=== PATIENT | female | born 1955 | race Caucasian/White ===

== ENCOUNTER 2017-04-14 09:13 | Inpatient (IN) | payer MEDICAID ==
[~2017-04-14] VITALS: Ht 157.5 cm; Wt 89.6 kg
--- NOTE | 2017-04-14 09:24 | NUR ---
PT BIB [facility] FOR C/O HEADACHE AND HTN. PER REPORT PT WOKE UP WITH A HEADACHE AND A FEELING OF GENERAL WEAKNESS. PT HAS A HX OF HTN AND STS SHE HAS BEEN TAKING HER MEDICATION LIKE NORMAL. PT UPON ARRIVAL TO ED WITH A&O X4 SPEAKING IN CLEAR COMPLETE SENTENCES. PT REPORTS HER HEADACHE IS GONE AT THIS TIME. PT STS WHEN SHE WOKE UP SHE HAD SOME ANXIETY AND WAS NOT FEELING NORMAL. PTS BREATHING IS EVEN AND UNLABORED. PT REPORTS NO RECENT N/V/D/C. PTS SKIN IS WARM AND DRY TO TOUCH. PT HAS 18 GAUGE IV IN HER RAC FLUSHED WITH 10ML NO REDNESS OR SWELLING NOTED. PTS BLOOD GLUCOSE SWIMMING POOL CLEANER WAS 320. PT IS PLACED IN GOWN ON QUILL SKINNER WITH CALL LIGHT IN REACH. PT AWAITING MSE
--- NOTE | 2017-04-14 10:29 | NUR ---
DR JEAN BAPTISTE AT BEDSIDE
--- NOTE | 2017-04-14 10:42 | NUR ---
MSE COMPLETED BY DR JEAN BAPTISTE
--- NOTE | 2017-04-14 10:50 | NUR ---
ANDRES AT BEDSIDE FOR BLOOD DRAW
--- NOTE | 2017-04-14 10:53 | NUR ---
PT TO CT VIA JOSE GUADALU[facility]
[2017-04-14 11:03] LABS: BASOPHIL % 0.6 % (0-2); PLATELET COUNT 213 x10^3mcL (130-400); RED CELL DISTRIBUTION WIDTH 13.1 % (11.5-14.5)
--- NOTE | 2017-04-14 11:06 | NUR ---
PT RETURNED FROM CT, PT AMBULATED TO RESTROOM TO PROVIDE URINE SAMPLE.
[2017-04-14 11:24] LABS: CALCIUM 8.6 mg/dL (8.5-10.1); CARBON DIOXIDE 29.1 mmol/L (21-32); CHLORIDE SERUM 103 mmol/L (98-107); CREATININE SERUM 0.8 mg/dL (0.6-1.0); GFR1 > 60 mL/min; GLUCOSE SERUM 239 mg/dL (74-106); POTASSIUM SERUM 3.8 mmol/L (3.5-5.1); SODIUM SERUM 139 mmol/L (136-145)
[2017-04-14 11:29] LABS: ALKALINE PHOSPHATASE 136 U/L (46-116); ALT/SGPT 22 U/L (14-59); AST/SGOT 16 U/L (15-37); BILIRUBIN TOTAL 0.52 mg/dL (0.20-1.00); CHOLESTEROL 215 mg/dL (<200); TOTAL PROTEIN, SERUM 7.2 g/dL (6.4-8.2)
[2017-04-14] MEDS ORDERED: METFORMIN HCL500 MG PO (11:32)
[2017-04-14] MEDS ORDERED: LOTENSIN40 MG PO (11:32)
[2017-04-14] MEDS ORDERED: LANTUS SOLOS100 U/M1 SC (11:32)
--- NOTE | 2017-04-14 11:40 | NUR ---
RECEIVED REPORT FROM ED, WILL AWAIT PT'S ARRIVAL.
[2017-04-14 11:52] LABS: AMPHETAMINE QUAL UR NONE DETECTED (NEG <=1000)
--- NOTE | 2017-04-14 11:55 | NUR ---
REPORT GIVEN TO MARCO BABCOCK TO ASSUME CARE OF PT PTS PRIMARY NURSE
[2017-04-14 12:13] LABS: microscopic required? YES; urine erythrocyte 1+ (NEGATIVE)
--- NOTE | 2017-04-14 12:18 | NUR ---
DR JEAN BAPTISTE AT BEDSIDE TO DISCUSS PLAN OF CARE WITH PT.
[2017-04-14 12:45] LABS: CHOLESTEROL/HDL RATIO 4.1
[2017-04-14 12:52] LABS: T3 TOTAL 1.3 ng/mL
[2017-04-14 12:58] LABS: FREE T4 1.09 ng/dL (0.76-1.46); FREE THYROXINE INDEX 2.6 ug/dL (1.4-4.5); T4(THYROXINE) 8.2 ug/dL (4.7-13.3)
--- NOTE | 2017-04-14 13:32 | NUR ---
OK TO BE TRANSPORTED TO [facility]
[2017-04-14 14:03] VITALS: BP 140/86
--- NOTE | 2017-04-14 14:07 | NUR ---
RECEIVED PT FROM ED VIA [email or web address]. ORIENTED PT TO ROOM AND SURROUNDINGS. IV NOTED TO RFA PATENT AND INTACT. TELE 33 PLACED ON PT READING NSR. INSTRUCTED PT ON THE USE OF CALL LIGHT FOR ASSISTANCE. ENDORSED PT TO PRIMARY NURSE MARCO
--- NOTE | 2017-04-14 14:12 | NUR ---
PT BEING ASSESSED BY MEDICAL STUDENT, RECEIVED MEDICATION, IV FLUID STARTED, DENIES PAIN, DENIES N/V/D, CALL LIGHT WITHIN REACH, VISITORS AT BEDSIDE.
--- NOTE | 2017-04-14 15:04 | NUR ---
PT DENIES SOB, DENIES PAIN, FAMILY AT BEDSIDE, PT TAUGHT TO USE CALL LIGHT, CALL LIGHT WITHIN REACH, WILL CONTINUE TO MONITOR.
--- NOTE | 2017-04-14 16:42 | NUR ---
US CAROTID IN PROGRESS, US LEGS TO FOLLOW.
[2017-04-14 17:30] VITALS: BP 157/75
--- NOTE | 2017-04-14 17:33 | NUR ---
PT DENIES SOB, DENIES PAIN, VISITORS AT BEDSIDE, BS 155, WILL MEDICATE PER EMAR, CALL LIGHT WITHIN REACH, WILL CONTINUE TO MONITOR.
--- NOTE | 2017-04-14 18:03 | NUR ---
PT DENIES SOB, DENIES PAIN, WATCHING TV, CALL LIGHT WITHIN REACH, WILL ENDORSE PT TO NEXT SHIFT.
--- NOTE | 2017-04-14 19:00 | NUR ---
RECEIVED PATIENT RESTING IN BED. PATIENT IS AAOX4. TELE #33 SR WITH OCC. PVCS. DENIES CHEST PAIN. LUNG SOUNDS CLEAR. NO SOB NOTED. IV FLUID INFUSING TO RFA PER DOCTOR'S ORDER. INTACT AND PATENT. SAFETY AND COMFORT MEASURES IN PLACE. BED IN LOWEST POSITION. CALL LIGHT WITHIN REACH. WILL CONTINUE TO MONITOR.
[2017-04-14 21:27] VITALS: BP 139/67
[2017-04-15 04:50] LABS: BASOPHIL % 0.2 % (0-2); PLATELET COUNT 209 x10^3mcL (130-400); RED CELL DISTRIBUTION WIDTH 13.5 % (11.5-14.5)
[2017-04-15 05:00] LABS: CALCIUM 8.5 mg/dL (8.5-10.1); CARBON DIOXIDE 26.8 mmol/L (21-32); MAGNESIUM 1.6 mg/dL (1.8-2.4); PHOSPHOROUS 4.2 mg/dL (2.5-4.9); POTASSIUM SERUM 3.8 mmol/L (3.5-5.1)
--- NOTE | 2017-04-15 05:05 | NUR ---
PATIENT SLEPT WELL. NO SIGNIFICANT CHANGES. IV FLUID INFUSING WELL. CALL LIGHT WITHIN REACH. WILL CONTINUE TO MONITOR.
[2017-04-15 06:29] VITALS: BP 159/78
--- NOTE | 2017-04-15 08:00 | NUR ---
RECIEVED PATIENT ALERT AND ORIENTED TIMES FOUR. PATIENT WAS SLEEPING ON INITIAL ASSESSMENT AND ROUNDS WITH NURSING AND NOW AWAKE WITH TRAY AT BEDSIDE. PATIENT HAS HAD AN ULTRASOUND AND IS OK TO EAT AT THIS TIME. SOME PALESTINIAN BREAD AT BEDSIDE AND ENCOURAGED FAMILY NOT TO BRING IN FOOD FROM HOME SHE IS DIABETIC. PATIENT HAS CLEAR BUT DIMINISHED BREATH SOUNDS. DANIEL SOUNDS ACTIVE AND SKIN IS WARM AND DRY. VITALS AT THIS TIME AT 98.0, 65, 18, 159/78, 98%. NOTED LABS ARE MAGNESIUM AT 1.6, AND URINE WITH BLOOD PLUS ONE, BACTERIA FEW AND WBCS AT 6-10. PULSES PALPABLE AND NO EDEMA NOTED. LABS NOTED ARE TRIGYCERIDE AT 293, PTT 21.7, CHOLESTEROL AT 215. NO COMPLAINTS OF DIZZINESS, NAUSEA, HEADACHE, OR PAIN NOTED. PATIENT GIVEN HER MEDICAIONS ORDERED WILL MONITOR FOR EFFECTIVENESS. CHEST XRAY NEGATIVE. PATIENT WITH QUESTIONABLE STENOSIS WITH NOTED CALCIFIED VESSELS.
[2017-04-15 09:41] VITALS: BP 173/86
--- NOTE | 2017-04-15 11:30 | NUR ---
BLODD SUGAR AT THIS TIME AT 249 AND GAVE INSULIN ORDERED. PATIENT TOLERATE DIET AND DENIES ANY PAIN OR DIZZINESS. FAMILY ABEDSIEE AND SUPPORTIVE WITH CARE.
--- NOTE | 2017-04-15 13:52 | NUR ---
FAMIULY STILL AT BEDSIDE AND PATIENT DENIES ANY ACUTE DISTRESS.
[2017-04-15 14:01] VITALS: BP 156/73
--- NOTE | 2017-04-15 17:27 | NUR ---
BLOOD SUGAR AT THIS TIME AT 159 AND GAVE 3 UNITS OF REGULAR ORDERED.
[2017-04-15 18:18] VITALS: BP 152/83
--- NOTE | 2017-04-15 19:00 | NUR ---
REC'D PT RESTING IN BED WITH VISITOR AT BEDSIDE. PT IS AAOX4. DENIES CHEST PAIN. LUNG SOUNDS CLEAR. NO SOB NOTED. BS ACTIVE X4. SKIN INTACT. IV FLUID INFUSING TO RFA PER DOCTOR'S ORDER. INTACT AND PATENT. SAFETY AND COMFORT MEASURES IN PLACE. BED IN LOWEST POSITION. CALL LIGHT WITHIN REACH. WILL CONTINUE TO MONITOR.
[2017-04-15 21:11] VITALS: BP 137/62
--- NOTE | 2017-04-15 23:52 | NUR ---
PT'S IV ON RFA INFILTRATED. NEW IV 22G STARTED ON LH BY YOKO REYNA.
[2017-04-16 05:12] VITALS: BP 146/79
--- NOTE | 2017-04-16 05:12 | NUR ---
PT RESTING IN BED. NO SIGNIFICANT CHANGES DURING SHIFT. NO DISTRESS NOTED. IV FLUID INFUSING WELL. CALL LIGHT WITHIN REACH. WILL CONTINUE TO MONITOR.
[2017-04-16 06:44] LABS: CALCIUM 8.4 mg/dL (8.5-10.1); CHLORIDE SERUM 106 mmol/L (98-107); CREATININE SERUM 0.9 mg/dL (0.6-1.0); GFR1 > 60 mL/min; GLUCOSE SERUM 195 mg/dL (74-106); MAGNESIUM 1.5 mg/dL (1.8-2.4); POTASSIUM SERUM 4.1 mmol/L (3.5-5.1); SODIUM SERUM 143 mmol/L (136-145)
--- NOTE | 2017-04-16 08:00 | NUR ---
RECEIVE PATIENT ALERT AND ORIENTED TIMES FOUR. IV ITNACT AND PATIENT TOLERATE OOB AND DIET WELL. SHE HAS HAD BLOOD SUGAR AT 174 AND RECEIVE D3 UNIT SOF REGULAR PATIENT HAS CHANJOSEMANUEL OFN HER GLUCOPHAGE AND TO BE TAKING 1000 INSTEAD OF 500MG BID. PATIENT AHS MAGNESIUM AT 1.6 AND WILL GIVE MAGNESIUM RIDER ORDERED. APTEINT AHS BEEN WITH HISTOR OF HTN, DM AND COLONOSCOPY. PATIENT NEEDS TO MODERATE HER DIET AND UNDERSTAND THE LIFE STYLE CHANGES FOR DIABETES. OFFER DIABETIC TEACHING INDICATED. VITALS AT THIS TIME AT 98.8, 78, 20, 165/81, 96% ON ROOM AIR.
--- NOTE | 2017-04-16 08:30 | NUR ---
SEEN BY DR BULLOCK AND STAFF AND PLAN OF CARE DISCUSSED.
[2017-04-16 10:06] VITALS: BP 165/81
--- NOTE | 2017-04-16 10:46 | NUR ---
GAVE EDUCATION ABOUT THE NEED FOR MONITRING AND BEING COMPLIANT FOR THE DIABETES. PATIENT HISTORY AND DIET CHOICES ARE NOTED AND SHE NEEDS TO IMPACT HOW THIS AFFECTS HER HEALTH AND OVERALL WELL BEING. ADVISED ON THE DIET AND SIGNS AND SYMPTOMS OF STROKE AND TIA. PATIENT DENIES PAIN OR DIZZINESS AT THIS TIME.
[2017-04-16] MEDS ORDERED: ASPIR 8181 MG PO (11:08)
[2017-04-16] MEDS ORDERED: LIPI10 PO (11:09)
[2017-04-16] MEDS ORDERED: METFORMIN HCL1000 MG PO (11:10)
[2017-04-16] MEDS ORDERED: GLUCOTROL10 MG PO (11:14)
[2017-04-16] MEDS ORDERED: LANTUS SOLOS100 U/M1 SQ (11:15)
[2017-04-16] MEDS ORDERED: NOR10 PO (11:16)
[2017-04-16] MEDS ORDERED: LOTENSIN40 MG PO (11:20)
[2017-04-16] MEDS ORDERED: PANTOPRAZOLE SO40 M1 PO (11:21)
--- NOTE | 2017-04-16 12:04 | NUR ---
PATIENTS MAGNESIUM RIDER AND FOR 1.5 MAG LEVEL.PATIENT BLOOD SUGAR AT THIS TIME AT 272 AND COVERAGE TO BE GIVEN.FAMILY AT BEDSIDE AND SUPPORTIVE WITH CARE.
[2017-04-16 12:55] VITALS: BP 165/81
--- NOTE | 2017-04-16 13:08 | NUR ---
GAVE MAGNESIUM RIDER AND FOR DISCHARGE HOME. PROCESSING PAPERWORK AND WILL DISHCARGE TO HOME WITH ALL BELONGINGS AND TO FOLLOW UP WITH PRIMARY POST DISCHARGE.
--- NOTE | 2017-04-16 14:37 | NUR ---
IV REMOVED AND PATIENT DISCHARGED TO HOME WITH ALL BELONGINGS. PATIENT IS IN NO DISTRESS AT TIME OF DISCHARGE AND PRESCRIPTIONS CALLED INTO THE PHARMACY INDICATED FOR THE PATIENT. HOME WITH FAMILY.
== END 2017-04-16 14:00 | disposition home or self-care (01) | DRG 52 ==
LOC: ED 09:13 → DU 11:25 → MU 11:25 → DU 13:59 → MU 04-15 21:44
PROVIDERS: Emergency Medicine; Family Medicine; ADMIT Family Medicine
DX: I67.4 Hypertensive encephalopathy (principal); N17.0 Acute kidney failure with tubular necrosis; E44.0 Moderate protein-calorie malnutrition; E87.0 Hyperosmolality and hypernatremia; D68.69 Other thrombophilia; E11.65 Type 2 diabetes mellitus with hyperglycemia; E11.51 Type 2 diabetes mellitus with diabetic peripheral angiopathy without gangrene; I42.9 Cardiomyopathy, unspecified; E83.42 Hypomagnesemia; K21.9 Gastro-esophageal reflux disease without esophagitis; I73.9 Peripheral vascular disease, unspecified; R31.9 Hematuria, unspecified; E78.5 Hyperlipidemia, unspecified; E66.9 Obesity, unspecified; Z79.4 Long term (current) use of insulin; Z68.37 Body mass index [BMI] 37.0-37.9, adult; Z79.84 Long term (current) use of oral hypoglycemic drugs
CPT/HCPCS: 80307; 83880; 84439; C9113; G0480; J1815; J3475; J7030; Q0092